=== PATIENT | female | born 1995 | race Caucasian/White ===

== ENCOUNTER 2017-10-17 14:39 | Outpatient (CLI) | payer OTHER | END 2017-10-17 14:40 | disposition home or self-care (01) | LOC: BICULT 14:39 | PROVIDERS: ATTEND Nurse Practitioner | DX: Z34.92 Encounter for supervision of normal pregnancy, unspecified, second trimester (principal); Z3A.25 25 weeks gestation of pregnancy | CPT/HCPCS: 76805 ==

== ENCOUNTER 2017-10-17 23:38 | Emergency (ER) | payer OTHER | END 2017-10-18 00:01 | disposition home or self-care (01) | LOC: SCSER 23:38 | DX: O99.613 Diseases of the digestive system complicating pregnancy, third trimester (principal); K02.9 Dental caries, unspecified; O99.89 Other specified diseases and conditions complicating pregnancy, childbirth and the puerperium; F41.9 Anxiety disorder, unspecified; O99.343 Other mental disorders complicating pregnancy, third trimester; M41.9 Scoliosis, unspecified; Z3A.49 Greater than 42 weeks gestation of pregnancy | CPT/HCPCS: 99282 ==